=== PATIENT | male | born 1965 | race Caucasian/White ===

== ENCOUNTER 2018-02-07 21:03 | Emergency (ER) | payer MEDICARE, OTHER | END 2018-02-07 22:11 | disposition home or self-care (01) | LOC: ER 22:11 | DX: S63.502A Unspecified sprain of left wrist, initial encounter (principal); S63.92XA Sprain of unspecified part of left wrist and hand, initial encounter; W01.0XXA Fall on same level from slipping, tripping and stumbling without subsequent striking against object, initial encounter; Y93.89 Activity, other specified; Y99.8 Other external cause status; Y92.098 Other place in other non-institutional residence as the place of occurrence of the external cause | CPT/HCPCS: 73110; 73130; 99284 ==

== ENCOUNTER 2019-05-02 00:29 | Emergency (ER) | payer MEDICARE ==
[~2019-05-02] VITALS: Ht 177.8 cm; Wt 99.8 kg
[2019-05-02 00:54] LABS: BASO % 0 % (0-3); EOS # 0.3 x10^3/uL (0.0-0.7); EOS % 4 % (0-3); HEMATOCRIT 42.1 % (39.0-53.0); HEMOGLOBIN 14.5 g/dL (13.0-17.5); LYMPH # 1.1 x10^3/uL (1.0-4.8); LYMPH % 16 % (24-48); MEAN CORPUSCULAR HEMOGLOBIN 32 pg (25-35); MEAN CORPUSCULAR HGB CONC 34 g/dL (31-37); MEAN CORPUSCULAR VOLUME 92 fL (79-100); MONO # 0.7 x10^3/uL (0.0-1.1); MONO % 10 % (0-9); NEUT # 4.8 x10^3uL (1.8-7.7); NEUT % 70 % (31-73); PLATELET COUNT 135 x10^3/uL (140-400); RED BLOOD COUNT 4.58 x10^6/uL (4.30-5.70); RED CELL DISTRIBUTION WIDTH 13.6 % (11.5-14.5); WHITE BLOOD COUNT 6.8 x10^3/uL (4.0-11.0)
[2019-05-02 01:03] LABS: PROTHROMBIN TIME PATIENT 14.4 SEC (11.7-14.0)
[2019-05-02 01:05] LABS: CALCIUM 8.7 mg/dL (8.5-10.1); CREATININE 0.9 mg/dL (0.7-1.3); GFR 87.6; POTASSIUM 3.4 mmol/L (3.5-5.1)
[2019-05-02 01:11] LABS: ALBUMIN 3.6 g/dL (3.4-5.0); ALBUMIN/GLOBULIN RATIO 1.2 (1.0-1.7); TOTAL BILIRUBIN 1.4 mg/dL (0.2-1.0); TOTAL PROTEIN 6.5 g/dL (6.4-8.2)
--- NOTE | 2019-05-02 01:41 | RAD ---
RS Compliance Statement: One or more of the following individualized dose reduction techniques were utilized for this examination: 1. Automated exposure control 2. Adjustment of the mA and/or kV according to patient size 3. Use of iterative reconstruction technique CT head without contrast 05/02/2019 1:12 AM INDICATION: Altered mental status COMPARISON: None available TECHNIQUE: Multiple axial CT images of the head were obtained from skull base through the vertex without intravenous contrast. FINDINGS: Head: Ventricles, sulci and basal cisterns are within normal limits. There is no hydrocephalus. Peña-white matter differentiation is normal. There is no acute intracranial hemorrhage. There is no mass, mass effect or midline shift. Posterior fossa is normal in appearance. Visualized portions of the orbits are normal. Paranasal sinuses are well aerated. Mastoid air cells are well aerated. Scalp and calvaria are normal. IMPRESSION: No acute intracranial hemorrhage. Electronically signed by: Elizabeth Abdullahi MD (05/02/2019 1:37 AM) [facility]
[2019-05-02 02:03] LABS: ACETAMIN < 2 mcg/ml (10-30); SALIC < 2.8 mg/dL (2.8-20.0)
[2019-05-02 02:27] LABS: BILIRUBIN,URINE NEGATIVE (NEG); CLARITY,URINE CLEAR; COLOR,URINE YELLOW; NITRITE,URINE NEGATIVE (NEG); PH,URINE 7.5; PROTEIN,URINE NEGATIVE (NEG-TRACE)
[2019-05-02 02:33] LABS: BARBITURATES NEG (NEG); BENZODIAZEPINES POS (NEG); CANNABINOIDS POS (NEG); COCAINE NEG (NEG); METHADONE NEG (NEG); OPIATES NEG (NEG); PHENCYCLIDINE NEG (NEG)
[2019-05-02 02:34] LABS: AMPHETAMINE/METHAMPHETAMINE NEG (NEG)
[2019-05-02 02:36] LABS: SQUAMOUS EPITHELIAL CELL,UR FEW /LPF
[2019-05-02 02:37] LABS: BACTERIA,URINE 0 /HPF (0-FEW); RBC,URINE 0 /HPF (0-2)
[2019-05-02 03:27] VITALS: BP 125/69
--- NOTE | 2019-05-02 03:58 | RAD ---
Chest radiograph 05/02/2019 12:40 AM INDICATION: AMS COMPARISON: None available TECHNIQUE: Portable upright frontal view of the chest is provided. FINDINGS: The cardiomediastinal silhouette is within normal limits. Mild pulmonary vascular congestion. There is increased opacity in the left lung base with suspected trace left pleural effusion. No pneumothorax. IMPRESSION: Increased opacity in the left lung base may represent subsegmental atelectasis versus infiltrate. Mild pulmonary vascular congestion as may be seen with congestive heart failure. Electronically signed by: Elizabeth Abdullahi MD (05/02/2019 3:55 AM) [facility]
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
--- NOTE | 2019-05-02 06:34 | RAD ---
Lumbar spine radiograph May 02, 2019 INDICATION: Back pain COMPARISON: Lumbar spine MRI August 23, 2015. TECHNIQUE: 3 views of the lumbar spine are provided. FINDINGS: There are 5 nonrib-bearing lumbar type vertebral bodies. Vertebral body heights are maintained. There is mild disc height loss at L4-L5 and L5-S1 stable. No significant spondylolysis or spondylolisthesis. Anterior wedging is identified at T11 and T12, stable minimal height loss at L3 may be progressed. Correlate with site of point tenderness. IMPRESSION: Minimal height loss at L3 may be progressed since prior examination. Correlate with the site of point tenderness. If there is persistent clinical concern, further evaluation with MRI is recommended. Electronically signed by: Elizabeth Abdullahi MD (05/02/2019 6:31 AM) [facility]
--- NOTE | 2019-05-02 08:47 | EKG ---
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
--- NOTE | 2019-05-03 08:13 | EKG ---
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
--- NOTE | 2019-05-05 18:38 | VNOTE ---
CALL BACK NOTE CALL BACK Microbiology 05/02/19 Urine Culture - Final, Complete 05/02/19 Urine Culture Result 1 (DONNIE) - Final, Complete 05/02/19 Antimicrobic Susceptibility - Final, Complete called pt left msg and asked him to call me back. noted urine culture, coag negative staph. 10-25k units only. likely contaminatn, waiting for him to call me back so i can check in on his status. AMBER ARZATE MD May 05, 2019 18:38
== END 2019-05-02 04:15 | disposition home or self-care (01) ==
LOC: ER 00:29
DX: G89.29 Other chronic pain (principal); M54.5 Low back pain; G89.11 Acute pain due to trauma; M54.6 Pain in thoracic spine; M21.962 Unspecified acquired deformity of left lower leg; R41.82 Altered mental status, unspecified; R94.31 Abnormal electrocardiogram [ECG] [EKG]; F41.9 Anxiety disorder, unspecified; F32.9 Major depressive disorder, single episode, unspecified; V49.88XA Car occupant (driver) (passenger) injured in other specified transport accidents, initial encounter; Y93.89 Activity, other specified; Y92.488 Other paved roadways as the place of occurrence of the external cause; Y99.8 Other external cause status
CPT/HCPCS: 36415; 70450; 71045; 72100; 80053; 80307; 80329; 81001; 82550; 84484; 85025; 85610; 87086; 93005; 99285; G0480; P9612

== ENCOUNTER 2020-08-27 09:31 | Emergency (ER) | payer MEDICARE ==
[~2020-08-27] VITALS: Ht 172.7 cm; Wt 104.5 kg
[2020-08-27 09:57] LABS: BASO # 0.1 x10^3/uL (0.0-0.2); BASO % 1 % (0-3); EOS # 0.2 x10^3/uL (0.0-0.7); EOS % 3 % (0-3); HEMATOCRIT 42.9 % (39.0-53.0); HEMOGLOBIN 14.8 g/dL (13.0-17.5); LYMPH # 1.7 x10^3/uL (1.0-4.8); LYMPH % 26 % (24-48); MEAN CORPUSCULAR HEMOGLOBIN 31 pg (25-35); MEAN CORPUSCULAR HGB CONC 35 g/dL (31-37); MEAN CORPUSCULAR VOLUME 90 fL (79-100); MONO # 0.5 x10^3/uL (0.0-1.1); MONO % 8 % (0-9); NEUT # 4.1 x10^3/uL (1.8-7.7); NEUT % 62 % (31-73); PLATELET COUNT 203 x10^3/uL (140-400); RED BLOOD COUNT 4.77 x10^6/uL (4.30-5.70); RED CELL DISTRIBUTION WIDTH 13.5 % (11.5-14.5); WHITE BLOOD COUNT 6.6 x10^3/uL (4.0-11.0)
[2020-08-27 10:06] LABS: PROTHROMBIN TIME PATIENT 12.5 SEC (11.7-14.0)
[2020-08-27 10:10] LABS: GFR 77.3; POTASSIUM 3.1 mmol/L (3.5-5.1)
[2020-08-27 10:16] LABS: ALBUMIN 3.7 g/dL (3.4-5.0); ALBUMIN/GLOBULIN RATIO 1.2 (1.0-1.7); TOTAL BILIRUBIN 0.8 mg/dL (0.2-1.0); TOTAL PROTEIN 6.9 g/dL (6.4-8.2)
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
[2020-08-27 10:41] LABS: BILIRUBIN,URINE NEGATIVE (NEG); CLARITY,URINE CLEAR; COLOR,URINE YELLOW; NITRITE,URINE NEGATIVE (NEG); PH,URINE 6.5 (<5.0-8.0); PROTEIN,URINE NEGATIVE (NEG-TRACE); UROBILINOGEN,URINE 0.2 mg/dL (0.2 mg/dL)
[2020-08-27 10:47] LABS: AMPHETAMINE/METHAMPHETAMINE NEG (NEG); BARBITURATES NEG (NEG); BENZODIAZEPINES POS (NEG); CANNABINOIDS POS (NEG); COCAINE NEG (NEG); METHADONE NEG (NEG); OPIATES NEG (NEG); PHENCYCLIDINE NEG (NEG)
[2020-08-27 10:50] LABS: RBC,URINE 0 /HPF (0-2)
[2020-08-27 10:51] LABS: BACTERIA,URINE 0 /HPF (0-FEW); WBC,URINE OCC /HPF (0-4)
[2020-08-27 12:17] VITALS: BP 151/89
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
== END 2020-08-27 13:14 | disposition home or self-care (01) ==
LOC: ER 09:31
DX: G89.11 Acute pain due to trauma (principal); M54.2 Cervicalgia; F41.9 Anxiety disorder, unspecified; F32.9 Major depressive disorder, single episode, unspecified; F17.200 Nicotine dependence, unspecified, uncomplicated; F12.90 Cannabis use, unspecified, uncomplicated; F10.10 Alcohol abuse, uncomplicated; Z90.89 Acquired absence of other organs; Z98.890 Other specified postprocedural states; V49.88XA Car occupant (driver) (passenger) injured in other specified transport accidents, initial encounter; Y93.89 Activity, other specified; Y92.413 State road as the place of occurrence of the external cause; Y99.8 Other external cause status
CPT/HCPCS: 36415; 70450; 72125; 80053; 80307; 81001; 82140; 84484; 85025; 85610; 99285; G0480

== ENCOUNTER 2020-12-22 04:34 | Emergency (ER) | payer MEDICARE ==
[~2020-12-22] VITALS: Ht 182.9 cm; Wt 107.0 kg
--- NOTE | 2020-12-22 05:03 | PHYS DOC ---
Past Medical History Past Medical History: Anxiety, Depression Additional Past Medical Histor: "Anger Issues", HEPATIC ENCEPHALOPATHY (ELIF DAIGLE MD) Past Surgical History: Knee Replacement, Tonsillectomy Additional Past Surgical Histo: Left Leg (ELIF DAIGLE MD) Smoking Status: Current Every Day Smoker Alcohol Use: Heavy Drug Use: Marijuana (ELIF DAIGLE MD) Adult General Chief Complaint Chief Complaint: SHORTNESS OF BREATH HPI HPI Patient is a 55 year old male with a known past medical history of anxiety, depression and polysubstance abuse brought to the emergency department now because he was initially complaining of shortness of breath. Patient notes that he was having cough and shortness of breath but took 2 Benadryl, 2002 NyQuil and attempt to get him to sleep. Patient was also having the symptoms of shortness of breath. Denies any fever, chills, nausea, vomiting, dizziness or lightheaded (ELIF DAIGLE MD) Review of Systems Review of Systems Constitutional: Denies fever or chills [] Eyes: Denies change in visual acuity, redness, or eye pain [] HENT: Denies nasal congestion or sore throat [] Respiratory: Denies cough or shortness of breath [] Cardiovascular: No additional information not addressed in HPI [] GI: Denies abdominal pain, nausea, vomiting, bloody stools or diarrhea [] : Denies dysuria or hematuria [] Musculoskeletal: Denies back pain or joint pain [] Integument: Denies rash or skin lesions [] Neurologic: Denies headache, focal weakness or sensory changes [] Endocrine: Denies polyuria or polydipsia [] All other systems were reviewed and found to be within normal limits, except as documented in this note. (ELIF DAIGLE MD) Current Medications Current Medications Current Medications Medications (Trade) Dose Ordered Sig/Adam Start Time Stop Time Status Last Admin Dose Admin Albuterol/ Ipratropium (Duoneb) 3 ml 1X ONCE 12/22/20 05:30 12/22/20 05:31 DC 12/22/20 05:11 3 ML (NATHAN TRAN DO) Allergies Allergies Allergies Coded Allergies Type Severity Reaction Last Updated Verified No Known Drug Allergies 03/13/15 No (NATHAN TRAN DO) Physical Exam Physical Exam Constitutional: Well developed, well nourished, no acute distress, non-toxic appearance. [] HENT: Normocephalic, atraumatic, bilateral external ears normal, oropharynx moist, no oral exudates, nose normal. [] Eyes: PERRLA, EOMI, conjunctiva normal, no discharge. [] Neck: Normal range of motion, no tenderness, supple, no stridor. [] Cardiovascular:Heart rate regular rhythm, no murmur [] Lungs & Thorax: Bilateral breath sounds clear to auscultation [] Abdomen: Bowel sounds normal, soft, no tenderness, no masses, no pulsatile masses. [] Skin: Warm, dry, no erythema, no rash. [] Back: No tenderness, no CVA tenderness. [] Extremities: No tenderness, no cyanosis, no clubbing, ROM intact, no edema. [] Neurologic: Alert and oriented X 3, normal motor function, normal sensory function, no focal deficits noted. [] Psychologic: Affect normal, judgement normal, mood normal. [] (ELIF DAIGLE MD) Current Patient Data Vital Signs Vital Signs Date Time Temp Pulse Resp B/P (MAP) Pulse Ox O2 Delivery O2 Flow Rate FiO2 12/22/20 05:35 88 28 145/66 (92) 95 Room Air 12/22/20 04:34 98.6 98.6 ([facility]) Lab Values Laboratory Tests Test 12/22/20 05:07 12/22/20 05:15 Influenza Type A Antigen Negative (NEGATIVE) Influenza Type B Antigen Negative (NEGATIVE) White Blood Count 8.6 x10^3/uL (4.0-11.0) Red Blood Count 4.58 x10^6/uL (4.30-5.70) Hemoglobin 14.4 g/dL (13.0-17.5) Hematocrit 41.8 % (39.0-53.0) Mean Corpuscular Volume 91 fL (79-100) Mean Corpuscular Hemoglobin 31 pg (25-35) Mean Corpuscular Hemoglobin Concent 34 g/dL (31-37) Red Cell Distribution Width 13.3 % (11.5-14.5) Platelet Count 245 x10^3/uL (140-400) Neutrophils (%) (Auto) 55 % (31-73) Lymphocytes (%) (Auto) 32 % (24-48) Monocytes (%) (Auto) 8 % (0-9) Eosinophils (%) (Auto) 3 % (0-3) Basophils (%) (Auto) 2 % (0-3) Neutrophils # (Auto) 4.8 x10^3/uL (1.8-7.7) Lymphocytes # (Auto) 2.8 x10^3/uL (1.0-4.8) Monocytes # (Auto) 0.7 x10^3/uL (0.0-1.1) Eosinophils # (Auto) 0.3 x10^3/uL (0.0-0.7) Basophils # (Auto) 0.1 x10^3/uL (0.0-0.2) Sodium Level 141 mmol/L (136-145) Potassium Level 4.3 mmol/L (3.5-5.1) Chloride Level 104 mmol/L (98-107) Carbon Dioxide Level 28 mmol/L (21-32) Anion Gap 9 (6-14) Blood Urea Nitrogen 10 mg/dL (8-26) Creatinine 1.2 mg/dL (0.7-1.3) Estimated GFR (Cockcroft-Gault) 62.6 BUN/Creatinine Ratio 8 (6-20) Glucose Level 103 mg/dL (70-99) H Calcium Level 9.2 mg/dL (8.5-10.1) Total Bilirubin 0.2 mg/dL (0.2-1.0) Aspartate Amino Transferase (AST) 18 U/L (15-37) Alanine Aminotransferase (ALT) 24 U/L (16-63) Alkaline Phosphatase 100 U/L (46-116) Creatine Kinase 226 U/L (39-308) Creatine Kinase MB (Mass) 2.6 ng/mL (0.0-3.6) Creatine Kinase MB Relative Index 1.2 % (0-4) Troponin I Quantitative < 0.017 ng/mL (0.000-0.055) BM-Qef-Q-Type Natriuretic Peptide 12 pg/mL (0-124) Total Protein 6.6 g/dL (6.4-8.2) Albumin 3.7 g/dL (3.4-5.0) Albumin/Globulin Ratio 1.3 (1.0-1.7) Laboratory Tests 12/22/20 05:15 Laboratory Tests 12/22/20 05:15 (NATHAN TRAN DO) EKG EKG [] (ELIF DAIGLE MD) Radiology/Procedures Radiology/Procedures [] (ELIF DAIGLE MD) Radiology/Procedures IMAGING REPORT Signed PATIENT: ZAC WHITLEY ACCOUNT: [id number] : 1965 LOCATION: ER AGE: 55 SEX: M EXAM STATUS: REG ER ORD. PHYSICIAN: ELIF DAIGLE MD REASON: sob PROCEDURE: PORTABLE CHEST 1V XR CHEST 1V 12/22/2020 4:49 AM INDICATION: Shortness of breath COMPARISON: 07/13/2019 TECHNIQUE: Portable frontal view of the chest is provided. FINDINGS: The cardiomediastinal silhouette is within normal limits. Trace left pleural effusion with adjacent compressive atelectasis versus infiltrate. There are no significant pleural effusions. There is no pulmonary vascular congestion. No pneumothorax. No suspicious osseous abnormality. IMPRESSION: There is trace left pleural effusion with left basilar atelectasis and/or infiltrate. Recommend follow-up to resolution. Electronically signed by: Sage Fiore MD (12/22/2020 5:15 AM) [facility] DICTATED and SIGNED BY: SAGE FIORE MD DATE: 12/22/20 [id number] (NATHAN TRAN DO) Course & Med Decision Making Course & Med Decision Making Pertinent Labs and Imaging studies reviewed. (See chart for details) [] (ELIF DAIGLE MD) Course & Med Decision Making COVID-19 CRITERIA: The patient was evaluated during the global COVID-19 pandemic, and that diagnosis was suspected/considered upon their initial presentation. Their evaluation, treatment and testing was consistent with current guidelines for patients who present with complaints or symptoms that may be related to COVID-19. Concern for cough and shortness of breath in a patient with COPD and left lower lobe infiltrate. Will treat with steroids, albuterol and azithromycin. Influenza negative. Covid test ordered. Will discharge home with strict ED return precautions were given for increased work of breathing, chest pain, hemoptysis, leg swelling, syncope or neurologic deficits. Encouraged urgent outpatient follow-up with PMD and pulmonology. Life-threatening processes were considered but are low suspicion at this time, given history, physical exam and ED workup. Pt was educated on all prescription medications and adverse effects. All patient's questions were answered and pt was stable at time of discharge. Life/limb-threatening differential includes but is not limited to, ACS, dysrhythmia, pneumothorax or hemothorax, pulmonary embolus, pneumonia, bronchoconstriction, pulmonary edema, angioedema, epiglottitis, tracheitis, Darrius's angina, [employer]PA/[employer], anaphylaxis, angioedema, cardiac tamponade or murmurs, pericarditis, myocarditis, poisoning or toxicity, sepsis or autoimmune/n eurologic disease. I spoken with the patient and her caregivers. I explained the patient's conditi on, diagnoses and treatment plan based on the information available to me at this time. I have answered the patient and her caregiver's questions and addressed any concerns. The patient and her caregivers have a good understanding of patient's diagnosis, condition and treatment plan as can be expected at this point. Vital signs have been stable. Patient's condition is stable and appropriate for discharge from the emergency department. Patient will pursue further outpatient evaluation with primary care physician or other designated or consulting physician as outlined in the discharge inst ructions. The patient and/or caregivers are agreeable to this plan of care and follow-up instructions have been explained in detail. The patient and/or caregivers have received these instructions in written form and have expressed an understanding of the discharge instructions. The patient and/or caregivers are aware that any significant change of condition or worsening of symptoms should prompt immediate return to this or the closest emergency department or call to 911. (NATHAN HINES DO) Dragon Disclaimer Dragon Disclaimer This electronic medical record was generated, in whole or in part, using a voice recognition dictation system. (ELIF DAIGLE MD) Departure Departure Impression: Primary Impression: Person under investigation for COVID-19 Additional Impressions: COPD (chronic obstructive pulmonary disease) Pneumonia involving left lung Disposition: 01 DC HOME SELF CARE/HOMELESS Condition: STABLE Referrals: JERONIMO GRIGGS MD (PCP) within 1 week for re-evaluation Patient Instructions: Chronic Obstructive Pulmonary Disease, Pneumonia, Adult Additional Instructions: FOLLOW UP WITH: [facility] Address: [address] [address] Return to ED immediately if your oxygen level drops below 90% (purchase a pulse oximetry at a medical supply store), difficulties breathing including rapid breathing or increased work of breathing (skin sucking under ribs), chest pain or stroke-like symptoms (facial droop, speech changes, arm/leg weakness). You have been tested for COVID-19. It is an infection caused by a new type of coronavirus. COVID-19 will cause cold-like or mild flu symptoms in most. It can cause more severe symptoms like problems breathing in some. There is no treatment for COVID-19. The body will clear the infection over time. Self-care will help to ease discomfort. Steps to Take: Self-Care Rest as needed. Healthy habits may help you feel better. Steps include: Choose healthy foods including fruits and vegetables. Drink water throughout the day. Get plenty of sleep each night. If you smoke, try to quit. It may ease breathing. Avoid alcohol. Keep Others Healthy The virus can spread to others. Droplets are released every time you sneeze or cough. The droplets can get into the mouth, nose, or eyes of people near you and lead to infection. To lower the chances of spreading COVID-19 to others: Stay at home until your doctor has said it is safe to leave. If you tested positive this will mean staying isolated until both of the following are true: At least 7 days have passed since the start of illness. You are free of fever for at least 72 hours without the use of medicine. During this time: - Avoid public areas, events, or transportation. Do not return to work or school until your doctor has said it is safe to do so. - Call ahead if you need to go to a medical center. Let them know you may have COVID-19. It will help them guide you where to go. They may also ask you to wear a facemask when you come to the office. - If you call for emergency medical services, let them know you may have COVID- 19. While at home: - Try to avoid close contact with others. Stay about 6 feet away. - If possible, spend most of your time in a separate room from others. - Use a face mask if you will be in close contact with others such as sharing a room or vehicle. - Have someone wipe down common surfaces in the home. Use household hyperbaric nurse every day on areas like doorknobs, counters, or sinks. - Cough or sneeze into a tissue. Throw the tissue away right after use. If a tissue is not available, cough or sneeze into your elbow. - Wash your hands often. Wash them after sneezing or coughing. Use soap and water and wash for at least 20 seconds. Alcohol based hand smoking pipes cleaner can be used if soap and water is not available. - Do not prepare food for others. Avoid sharing personal items like forks, spoons, or toothbrushes. - Avoid close contact with pets while you are sick. There is no evidence of the virus passing to pets. This is a safety step until more is known about this virus. Isolation can be frustrating. Social interaction can help. Keep in touch with friends and family through phone and tech options. You can still interact with others in your home, just keep a safe distance of about 6 feet. Follow-up: Your doctors office will check in with you to see if there are any changes in your health. You may be asked to keep track of symptoms to share with them. They will also let you know when you are clear to be in public again. Problems to Look Out For: Contact your doctor if your recovery is not going as you expect. Get emergency care if you have problems such as: - Trouble breathing - Nonstop chest pain or pressure - Changes in awareness, confusion, or problems waking - Lips or face have bluish color - Worsening of symptoms If you think you have an emergency, call for emergency medical services right away. As taken from [facility] [place] [facility] Albuterol Sulfate (VENTOLIN HFA INHALER) 18 Gm Hfa.aer.ad 2 PUFF INH QID for FOR ASTHMA, #1 INHALER 0 Refills Prov: NATHAN TRAN DO 12/22/20 Prednisone (PREDNISONE) 20 Mg Tablet 2 TAB PO DAILY for 5 Days, #10 TAB Prov: NATHAN TRAN DO 12/22/20 Azithromycin (ZITHROMAX) 250 Mg Tablet 1 PKG PO UD, #6 TAB Prov: NATHAN TRAN DO 12/22/20 Problem Qualifiers ELIF DAIGLE MD Dec 22, 2020 05:03 NATHAN TRAN DO Dec 22, 2020 06:57
--- NOTE | 2020-12-22 05:18 | RAD ---
XR CHEST 1V 12/22/2020 4:49 AM INDICATION: Shortness of breath COMPARISON: 07/13/2019 TECHNIQUE: Portable frontal view of the chest is provided. FINDINGS: The cardiomediastinal silhouette is within normal limits. Trace left pleural effusion with adjacent c ompressive atelectasis versus infiltrate. There are no significant pleural effusions. There is no pulmonary vascular congestion. No pneumothora x. No suspicious osseous abnormality. IMPRESSION: There is trace left pleural effusion with left basilar atelectasis and/or infiltrate. Recommend follo w-up to resolution. Electronically signed by: Elizabeth Abdullahi MD (12/22/2020 5:15 AM) [facility]AD[facility]
[2020-12-22 05:24] LABS: BASO # 0.1 x10^3/uL (0.0-0.2); BASO % 2 % (0-3); EOS # 0.3 x10^3/uL (0.0-0.7); EOS % 3 % (0-3); HEMATOCRIT 41.8 % (39.0-53.0); HEMOGLOBIN 14.4 g/dL (13.0-17.5); LYMPH # 2.8 x10^3/uL (1.0-4.8); LYMPH % 32 % (24-48); MEAN CORPUSCULAR HEMOGLOBIN 31 pg (25-35); MEAN CORPUSCULAR HGB CONC 34 g/dL (31-37); MEAN CORPUSCULAR VOLUME 91 fL (79-100); MONO # 0.7 x10^3/uL (0.0-1.1); MONO % 8 % (0-9); NEUT # 4.8 x10^3/uL (1.8-7.7); NEUT % 55 % (31-73); PLATELET COUNT 245 x10^3/uL (140-400); RED BLOOD COUNT 4.58 x10^6/uL (4.30-5.70); RED CELL DISTRIBUTION WIDTH 13.3 % (11.5-14.5); WHITE BLOOD COUNT 8.6 x10^3/uL (4.0-11.0)
[2020-12-22] MEDS ORDERED: IPRATRPIUM/ALBUTEROL 0.5/2.5MG 3 ML NEBU. NEB ONE (05:30)
[2020-12-22 05:38] LABS: CALCIUM 9.2 mg/dL (8.5-10.1); CREATININE 1.2 mg/dL (0.7-1.3); GFR 62.6; POTASSIUM 4.3 mmol/L (3.5-5.1)
[2020-12-22 05:44] LABS: ALBUMIN 3.7 g/dL (3.4-5.0); ALBUMIN/GLOBULIN RATIO 1.3 (1.0-1.7); TOTAL BILIRUBIN 0.2 mg/dL (0.2-1.0); TOTAL PROTEIN 6.6 g/dL (6.4-8.2)
[2020-12-22 05:50] LABS: INFLUENZA A PATIENT NEGATIVE (NEGATIVE); INFLUENZA B PATIENT NEGATIVE (NEGATIVE)
[2020-12-22] MEDS ORDERED: PRED20TA PO (06:56)
[2020-12-22] MEDS ORDERED: AZIT250T PO (06:56)
[2020-12-22] MEDS ORDERED: VENTOLIN HFA18 GM INH (06:56)
[2020-12-22 07:05] VITALS: BP 128/75
--- NOTE | 2020-12-22 10:17 | EKG ---
[facility] [address] [place] [address] Test Date: 2020-12-22 Test Time: 05:08:19 Pat Name: ZAC WHITLEY Department: Room: Gender: M Technology Manager: : 1965 Requested By: ELIF DAIGLE Order Number: [id number] Reading MD: Measurements Intervals [place] Rate: 89 P: 0 [place]: 152 QRS: 16 QRSD: 94 T: 59 QT: 364 QTc: 444 Interpretive Statements SINUS RHYTHM R-S TRANSITION ZONE IN V LEADS DISPLACED TO THE RIGHT INCOMPLETE RIGHT BUNDLE BRANCH BLOCK OTHERWISE NORMAL ECG RI6.02 No previous ECG available for comparison
--- NOTE | 2020-12-26 17:05 | NUR ---
Patient contacted at the provided contact number, , and message left on voicemail identifying with the patient's name.
== END 2020-12-22 07:45 | disposition home or self-care (01) ==
LOC: ER 04:34
DX: J18.9 Pneumonia, unspecified organism (principal); Z20.822 Contact with and (suspected) exposure to COVID-19; J44.9 Chronic obstructive pulmonary disease, unspecified; F17.200 Nicotine dependence, unspecified, uncomplicated
CPT/HCPCS: 36415; 71045; 80053; 82553; 83880; 84484; 85025; 87804; 93005; 94640; 99284; C9803; U0003; 99285-25